=== PATIENT | male | born 1980 | race Hispanic/Latino ===

== ENCOUNTER 2017-05-29 21:34 | Emergency (ER) | payer SELFPAY ==
[~2017-05-29] VITALS: Ht 180.3 cm; Wt 100.0 kg
[~2017-05-29 21:34] MED LIST: AMOXICILLIN500 MG; CEPHALEXIN500 M1 OR; Robitussin AC OR; TYLENOL500 MG OR
[2017-05-29] MEDS ORDERED: GENTAMICIN0.3 % OD (22:37)
[2017-05-29 22:50] VITALS: BP 156/102
[2017-05-29] MEDS ORDERED: PERCOCET 5/325M1 TAB PO (22:52)
== END 2017-05-29 22:55 | disposition home or self-care (01) | DRG 115 ==
LOC: ED 21:34
PROC: 08C8XZZ Extirpation of Matter from Right Cornea, External Approach (ICD-10-PCS; principal; 2017-05-29)
DX: T15.01XA Foreign body in cornea, right eye, initial encounter (principal); X58.XXXA Exposure to other specified factors, initial encounter; Y93.89 Activity, other specified; Y92.89 Other specified places as the place of occurrence of the external cause

== ENCOUNTER 2024-09-29 19:18 | Emergency (ER) | payer SELFPAY ==
[~2024-09-29] VITALS: Ht 180.3 cm; Wt 98.0 kg
[~2024-09-29 19:18] MED LIST changes: +BACTRIM DS1 TAB PO; +CEPHALEXIN500 M1 PO; +GENTAMICIN0.3 % OD; +IBUPROFEN600 MG PO; +MUPIROCIN2 % EX; +PERCOCET 5/325M1 TAB PO
[2024-09-29] MEDS ORDERED: PREDNISONE20 MG PO (20:09)
[2024-09-29] MEDS ORDERED: predniSONE 20 MG/TAB PO ONE (20:10)
[2024-09-29 20:35] VITALS: BP 172/88
== END 2024-09-29 20:35 | disposition home or self-care (01) | DRG 554 ==
LOC: ED 19:18
DX: M17.11 Unilateral primary osteoarthritis, right knee (principal)